=== PATIENT | male | born 1985 | race Caucasian/White ===

== ENCOUNTER 2024-10-13 18:32 | Inpatient (IN) | payer OTHER, SELFPAY ==
[2024-10-13 18:55] VITALS: BP 138/85; PULSE 88; TEMP 36.4; O2SAT 98
[2024-10-13 19:11] VITALS: BMI 30.9
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
--- NOTE | 2024-10-14 01:23 | PC.ADMIT ---
This policy writer assumed care of the patient at 1930 10/13/24. He was pacing the hallway, mumbling under his breath. He was very paranoid and avoided this policy writer when she approached him to do his admission. Patient said I'm okay, I'm Herberth Laboy (a character in a movie) . He was unable to sign any TANNER or any other legal paperwork. He spent the evening going in the patient kitchen and then in the hallway and in his room. He had no scheduled meds, but kept asking for Abilify 5 mg, that's legal .
--- NOTE | 2024-10-14 08:51 | HO.PM.IMCN ---
History of Present Illness Data of Consult Service Date: 10/14/24 Primary Care Provider: Unknown Physician HPI Reason for consult: Admission H&P Pt is a 38-year-old male with a PMH significant for?schizophrenia who is admitted to M5 psychiatry unit for paranoid/delusional behavior secondary to medication noncompliance. Pt was initially brought in on a section 12 to [facility] by police after being found acting erratically and a local jehovah's witness. When police confronted pt he eloped, running away and attempting to jump onto a moving computer rail train. In the hospital pt was floridly psychotic, speaking in word salad, acting erratically, and hypersexual, requiring chemical restraint. Workup in the ED concerning for inguinal intertrigo for which he was started on miconazole. Medical consult for admission H&P. ?Attempted to see pt on the unit, but he continues to be actively psychotic and refuses either interview or examination. Pt jumped up off bed when approached and walked out of the room, stating that he was done with all illegal evaluations, and something about an illegal allergy listed on his record. Pt appears internally pre-occupied, speaking loudly to himself, and walks quickly away if approached. Labs reviewed, significant for Review of Systems Review of Systems: Yes Unobtainable due to mental status [facility] Medical History (Updated 10/14/24 @ 13:16 by ABRAHAM Adams) Schizophrenia Social History Do you presently have visiting nurse or other home services: No Patient Tobacco Use Status: Refuse Tobacco use screen Currently Displaying Signs/Symptoms of Drug Intoxication Withdrawal: No Spiritual Healthcare Practices: unknown Worship Healthcare Practices: unknown Cultural Healthcare Practices: unknown Advance Directives: No Advance Directives Information Provided: Yes Do you have thoughts of harming others: None Do you have a plan to hurt others: No Plan Recently lost weight without trying: No Eating poorly because of decreased appetite: No Nutrition Risks: No Nutritional Risk Meds Allergies Allergy/AdvReac Type Severity Reaction Status Date / Time albuterol AdvReac vocal tic Verified 10/13/24 20:09 haloperidol (From Haldol) AdvReac Unknown Verified 10/13/24 20:05 methylphenidate AdvReac vocal tic Verified 10/13/24 20:09 wheat AdvReac mood Verified 10/13/24 20:11 changes Active Medications: Current Medications Acetaminophen (Acetaminophen 325 Mg Tablet) 650 mg PO Q6H PRN PRN Reason: Headache/Pain, Scale 1-10 Al Hydroxide/Mg Hydroxide (Magnesium Hydrox/Alum Hydrox 30 Ml Oral.Susp) 30 ml PO Q6H PRN PRN Reason: Heartburn/Nausea Magnesium Hydroxide (Milk Of Magnesia 30 Ml Oral.Susp) 30 ml PO DAILY PRN PRN Reason: Constipation Olanzapine (Olanzapine Odt 10 Mg Tab.Rapdis) 10 mg TRANSLINGU DAILY SAMPSON Trazodone HCl (Trazodone Hcl 50 Mg Tablet) 50 mg PO BEDTIME MRX1 PRN PRN Reason: Insomnia Home Medications ?Medication ?Instructions ?Recorded ?Confirmed ?Last Taken ?Type olanzapine 10 mg disintegrating 10 mg PO DAILY 10/13/24 10/13/24 Unknown History tablet Physical Exam Vital Signs and Narrative: Vital Signs: Last Vital Signs Temp 97.6 F 10/13/24 18:55 Pulse 88 10/13/24 18:55 BP 138/85 10/13/24 18:55 Pulse Ox 98 10/13/24 18:55 O2 Del Method Room Air 10/13/24 18:55 BMI result Body Mass Index 30.9 Pt actively psychotic, refuses formal exam Assessment and Plan (1) Medical clearance for psychiatric admission: Status: Acute Plan Pt is a 38-year-old male with a PMH significant for?schizophrenia who is admitted to M5 psychiatry unit for paranoid/delusional behavior secondary to medication noncompliance. Pt was initially brought in on a section 12 to [facility] by police after being found acting erratically and a local jehovah's witness. When police confronted pt he eloped, running away and attempting to jump onto a moving computer rail train. In the hospital pt was floridly psychotic, speaking in word salad, acting erratically, and hypersexual, requiring chemical restraint. Workup in the ED concerning for inguinal intertrigo for which he was started on miconazole. Medical consult for admission H&P. Mood disorder Plan as per psychiatry Inguinal intertrigo As reported on ED documentation Pt not amenable for examination at this time Continue miconazole Pt otherwise has no known acute medical complaints or chronic medical conditions. Will sign off for now. Please re-consult if any acute issue or need arises.
--- NOTE | 2024-10-14 17:28 | HO.PSYADMNOT ---
HPI Date of Service: 10/14/24 Chief Complaint: Schizophrenia Sources of Information: patient interviewed (Patient disorganized and wouldn't participate in the interview), chart reviewed and crisis/core team assessment reviewed HPI Narrative: 38 year old male with a history of schizophrenia. Information was obtained from [facility] documentation as patient was unable/unwilling to participate in meeting. Patient was transferred from [facility]. He was reportedly at a local confucianism and acting erratically. Police were called and patient tried to elope by running towards the train tracks and trying to get on a -?moving- train. Reported in the record is that the patient has a history of chronic schizophrenia and non-adherence to medications and has had similar presentations. He was most recently at [facility] 3 weeks ago or so. Patient was acting erratically in the ED reportedly making non-sensical and word salad statements, talking to his fist as if it were a microphone. He needed chemical restraint and reportedly ran naked in the ED. Reportedly his sister is trying to obtain guardianship. He was on Invega Sustenna in the past and when adherent he doesn't exhibit similar behaviors. On the unit, the patient is noted to be restless, pacing the unit, self dialoguing, stating he is Herberth Darnell (a movie character), saying randomly this is illegal . When this designer/writer attempted to meet with the patient he stood up, said I don't want to be subjected to an illegal evaluation and walked away. He would not engage with this designer/writer. Past Psychiatric History: Reported schizophrenia and previous psychiatric hospitalizations. Most recently [facility] in September 2024. Medical Evaluation Reviewed: Yes [facility] Medical History (Updated 10/14/24 @ 13:16 by ABRAHAM Adams) Schizophrenia Family History: unknown at this time Social History: Limited information at this time. Pending collateral information. Substance History: Reported MJ in the past. Trauma History: Unknown Diagnostics Vital Signs (24Hr): Vital Signs - 24 hr 10/13/24 18:55 Temperature 97.6 F Pulse Rate 88 Blood Pressure 138/85 Pulse Oximetry 98 Oxygen Delivery Method Room Air BMI result Body Mass Index 30.9 Meds/Allergies Meds Home Medications ?Medication ?Instructions ?Recorded ?Confirmed ?Type olanzapine 10 mg disintegrating 10 mg PO DAILY 10/13/24 10/13/24 History tablet Allergies Allergies Allergy/AdvReac Type Severity Reaction Status Date / Time albuterol AdvReac vocal tic Verified 10/13/24 20:09 haloperidol (From Haldol) AdvReac Unknown Verified 10/13/24 20:05 methylphenidate AdvReac vocal tic Verified 10/13/24 20:09 wheat AdvReac mood Verified 10/13/24 20:11 changes Mental Status Exam Mental Status Exam Narrative: General appearance: Disheveled. Poor hygiene.? Eye contact: Poor. Musculoskeletal: Psychomotor agitation, restless, pacing..??? Manner/behavior: Uncooperative Speech:? Self dialoguing ? Mood and affect: Anxious, paranoid, intense. Thought process/associations: Flight of ideas and loose associations. Word salad. Disorganized. Thought content: Paranoid, delusional. ? Hallucinations: AH based on self dialoguing and internal preoccupation Suicidality/self-destructive behavior: Can't assess Homicidally/violence: hypersexual per records. Reliability: poor.? ? Judgment: severely impaired.? ? Insight: severely impaired.? Cognition: Can't assess Attention, concentration and fund of knowledge Poor? Impulse control and emotional regulation: Poor Assessment & Plan Assessment & Plan (1) Medical clearance for psychiatric admission: Status: Acute Code(s): Z00.8 - Encounter for other general examination Plan Pt is a 38-year-old male with a PMH significant for?schizophrenia who is admitted to M5 psychiatry unit for paranoid/delusional behavior secondary to medication noncompliance. Pt was initially brought in on a section 12 to [facility] by police after being found acting erratically and a local confucianism. When police confronted pt he eloped, running away and attempting to jump onto a moving computer rail train. In the hospital pt was floridly psychotic, speaking in word salad, acting erratically, and hypersexual, requiring chemical restraint. Workup in the ED concerning for inguinal intertrigo for which he was started on miconazole. PLAN: - Admit to inpatient psychiatry - CV - Collateral information from family and providers. - Milieu treatment and group therapy. - Medications: Start Invega 6 mg daily. Zyprexa Zydis 10 mg BID PRN. - Social work evaluation. - Disposition planning. Inguinal intertrigo As reported on ED documentation Pt not amenable for examination at this time Continue miconazole Patient educated on: other (patient wouldn't engage due to mental state. ) Reason for continued inpatient stay Substantial Risk for: harm to self, inability to function and rapid decompensation Statement Statement: I have reviewed the history and physical and performed a pertinent examination on my patient. No changes have occurred unless specified. If the History and Physical was not performed prior to admission, the Hospitalist's service will be consulted for completing the admission physical. Time Spent With Patient Time: Total time managing care of this patient today ____ minutes.
[2024-10-14 19:48] LABS: Creatinine Clr Calc Pharmacy 142.0; Estimated Glomerular Filt Rate > 60
[2024-10-14 19:57] LABS: Alanine Aminotransferase 59 U/L (0-40); Albumin Level 4.6 g/dL (3.5-5.0); Alkaline Phosphatase 80 U/L (39-117); Anion Gap 14 (12-20); Aspartate Amino Transferase 33 U/L (5-37); Blood Urea Nitrogen 10 mg/dL (9-16); Calcium 9.6 mg/dL (8.4-10.2); Carbon Dioxide 29 mmol/L (22-29); Chloride 103 mmol/L (96-108); Cholesterol 118 mg/dL (<200); Creatinine Clr Calc Pharmacy 142.0; Estimated Glomerular Filt Rate > 60; HDL Cholesterol 37 mg/dL (>40); Potassium 3.7 mmol/L (3.3-5.1); Sodium 142 mmol/L (135-145); Total Protein 7.2 g/dL (6.5-8.0); Triglycerides 121 mg/dL (<150)
[2024-10-14 20:00] VITALS: BP 111/68; PULSE 89; RESP 16; TEMP 37.2; O2SAT 97
[2024-10-14 20:12] LABS: Thyroid Stimulating Hormone 2.45 uIU/mL (0.32-4.0)
[2024-10-14 20:18] LABS: Vitamin B12 365 pg/mL (200-900)
[2024-10-15 08:00] VITALS: BP 138/80; PULSE 104; TEMP 36.4; O2SAT 96
--- NOTE | 2024-10-15 09:46 | HO.PSYCHPN ---
Subjective Subjective Date of Service: 10/15/24 Reason For Visit: Schizophrenia Interim History: Patient seen briefly. When approached, patient said 5 mg of Abilify and I will be good. I am not going to do an illegal evaluation.. then walks away. He would not respond to further questions. He is described as disorganized. Pacing. He self dialogues. He keeps claiming he is Herberth Darnell from [facility]. He agreed to take Invega from today's nurse. Review of Systems Review of Systems Yes Unobtainable due to mental status Mental Status Exam Mental Status Exam Narrative: General appearance: Disheveled. Poor hygiene.? Eye contact: Poor. Musculoskeletal: Psychomotor agitation, restless, pacing..??? Manner/behavior: Uncooperative Speech:? Self dialoguing ? Mood and affect: Anxious, paranoid, intense. Thought process/associations: Flight of ideas and loose associations. Word salad. Disorganized. Thought content: Paranoid, delusional. ? Hallucinations: AH based on self dialoguing and internal preoccupation Suicidality/self-destructive behavior: Can't assess Homicidally/violence: hypersexual per records. Reliability: poor.? ? Judgment: severely impaired.? ? Insight: severely impaired.? Cognition: Can't assess Attention, concentration and fund of knowledge Poor? Impulse control and emotional regulation: Poor Diagnostics Vital Signs (24Hr): Vital Signs - 24 hr 10/14/24 20:00 Temperature 98.9 F Pulse Rate 89 Respiratory Rate 16 Blood Pressure 111/68 Pulse Oximetry 97 Oxygen Delivery Method Room Air BMI result Body Mass Index 30.9 Labs 10/14/24 19:29 Labs: Laboratory Results - last 48 hr 10/14/24 10/14/24 10/14/24 19:29 19:29 19:29 Sodium 142 Potassium 3.7 Chloride 103 Carbon Dioxide 29 Anion Gap 14 BUN 10 Creatinine 0.86 0.86 Estim Creat Clear Calc 142.0 142.0 Estimated GFR > 60 Random Glucose Calcium Total Bilirubin AST ALT Alkaline Phosphatase Total Protein Albumin Triglycerides Cholesterol LDL Cholesterol, Calc HDL Cholesterol Vitamin B12 TSH 10/14/24 19:29 Sodium Potassium Chloride Carbon Dioxide Anion Gap BUN Creatinine Estim Creat Clear Calc Estimated GFR > 60 Random Glucose 112 Calcium 9.6 Total Bilirubin 0.3 AST 33 ALT 59 H Alkaline Phosphatase 80 Total Protein 7.2 Albumin 4.6 Triglycerides 121 Cholesterol 118 LDL Cholesterol, Calc 57 HDL Cholesterol 37 L Vitamin B12 365 TSH 2.45 Medications Medications Current Medications Acetaminophen (Acetaminophen 325 Mg Tablet) 650 mg PO Q6H PRN PRN Reason: Headache/Pain, Scale 1-10 Al Hydroxide/Mg Hydroxide (Magnesium Hydrox/Alum Hydrox 30 Ml Oral.Susp) 30 ml PO Q6H PRN PRN Reason: Heartburn/Nausea Magnesium Hydroxide (Milk Of Magnesia 30 Ml Oral.Susp) 30 ml PO DAILY PRN PRN Reason: Constipation Olanzapine (Olanzapine Odt 10 Mg Tab.Rapdis) 10 mg TRANSLINGU BID PRN PRN Reason: Psychosis Paliperidone (Paliperidone Er 6 Mg Tab.Er.24) 6 mg PO DAILY SAMPSON Last Admin: 10/14/24 19:09 Dose: 6 mg Trazodone HCl (Trazodone Hcl 50 Mg Tablet) 50 mg PO BEDTIME MRX1 PRN PRN Reason: Insomnia Allergies Allergies Allergy/AdvReac Type Severity Reaction Status Date / Time albuterol AdvReac vocal tic Verified 10/13/24 20:09 haloperidol (From Haldol) AdvReac Unknown Verified 10/13/24 20:05 methylphenidate AdvReac vocal tic Verified 10/13/24 20:09 wheat AdvReac mood Verified 10/13/24 20:11 changes Assessment & Plan Assessment & Plan (1) Medical clearance for psychiatric admission: Status: Acute Code(s): Z00.8 - Encounter for other general examination Plan Pt is a 38-year-old male with a PMH significant for?schizophrenia who is admitted to M5 psychiatry unit for paranoid/delusional behavior secondary to medication noncompliance. Pt was initially brought in on a section 12 to [facility] by police after being found acting erratically and a local yazidism. When police confronted pt he eloped, running away and attempting to jump onto a moving commuter rail train. In the hospital pt was floridly psychotic, speaking in word salad, acting erratically, and hypersexual, requiring chemical restraint. Workup in the ED concerning for inguinal intertrigo for which he was started on miconazole. PLAN: - Admit to inpatient psychiatry - CV - Collateral information from family and providers. - Milieu treatment and group therapy. - Medications: Start Invega 6 mg daily. Zyprexa Zydis 10 mg BID PRN. - Social work evaluation. - Disposition planning. 10/15: Continue current management and treatment plan. Inguinal intertrigo As reported on ED documentation Pt not amenable for examination at this time Continue miconazole Reason for continued inpatient stay Substantial Risk for: inability to function and rapid decompensation Time Spent With Patient Time: Total time managing care of this patient today ____ minutes.
[2024-10-15 20:00] VITALS: BP 124/73; PULSE 97; TEMP 36.8; O2SAT 98
--- NOTE | 2024-10-15 22:01 | PC.NURSE ---
When this ad writer attempted evening assessment with this patient, he sat up in his bed quickly and stated I'm fine, I don't want no assessment, I took my meds this morning. He then laid back down in his bed, with his back to this ad writer.
[2024-10-16 08:00] VITALS: BP 110/58; PULSE 100; TEMP 36.6; O2SAT 100
--- NOTE | 2024-10-16 13:07 | HO.PSYCHPN ---
Subjective Subjective Date of Service: 10/16/24 Reason For Visit: Schizophrenia Interim History: Declined to meet with T/W. Pt stated, I don't want a legal evaluation. I already spoke to you today . Pt was informed he had not spoken with T/W today; however continued to walk away. Pt overheard stating his name is Jeremie. medication compliant. per nursing, slept 7 hours last night. Medication Compliance: Yes Side effects from medications: No Mental Status Exam Mental Status Exam Narrative: Unable to obtain full mental status d/t pt declined to meet with T/W. Patient Appearance: Appropriate Level of Consciousness: Awake Patient Behavior: Guarded and Uncooperative Mood Description: Labile Affect Description: Labile Speech Pattern: Clear Delusions: Paranoid Ideation Diagnostics Vital Signs (24Hr): Vital Signs - 24 hr 10/15/24 20:00 10/16/24 08:00 Temperature 98.3 F 97.8 F Pulse Rate 97 100 Blood Pressure 124/73 110/58 L Pulse Oximetry 98 100 Oxygen Delivery Method Room Air Room Air BMI result Body Mass Index 30.9 Labs 10/14/24 19:29 Labs: Laboratory Results - last 48 hr 10/14/24 10/14/24 10/14/24 19:29 19:29 19:29 Sodium 142 Potassium 3.7 Chloride 103 Carbon Dioxide 29 Anion Gap 14 BUN 10 Creatinine 0.86 0.86 Estim Creat Clear Calc 142.0 142.0 Estimated GFR > 60 Random Glucose Calcium Total Bilirubin AST ALT Alkaline Phosphatase Total Protein Albumin Triglycerides Cholesterol LDL Cholesterol, Calc HDL Cholesterol Vitamin B12 TSH 10/14/24 19:29 Sodium Potassium Chloride Carbon Dioxide Anion Gap BUN Creatinine Estim Creat Clear Calc Estimated GFR > 60 Random Glucose 112 Calcium 9.6 Total Bilirubin 0.3 AST 33 ALT 59 H Alkaline Phosphatase 80 Total Protein 7.2 Albumin 4.6 Triglycerides 121 Cholesterol 118 LDL Cholesterol, Calc 57 HDL Cholesterol 37 L Vitamin B12 365 TSH 2.45 Medications Medications Current Medications Acetaminophen (Acetaminophen 325 Mg Tablet) 650 mg PO Q6H PRN PRN Reason: Headache/Pain, Scale 1-10 Al Hydroxide/Mg Hydroxide (Magnesium Hydrox/Alum Hydrox 30 Ml Oral.Susp) 30 ml PO Q6H PRN PRN Reason: Heartburn/Nausea Magnesium Hydroxide (Milk Of Magnesia 30 Ml Oral.Susp) 30 ml PO DAILY PRN PRN Reason: Constipation Olanzapine (Olanzapine Odt 10 Mg Tab.Rapdis) 10 mg TRANSLINGU BID PRN PRN Reason: Psychosis Paliperidone (Paliperidone Er 6 Mg Tab.Er.24) 6 mg PO DAILY SAMPSON Last Admin: 10/16/24 08:34 Dose: 6 mg Trazodone HCl (Trazodone Hcl 50 Mg Tablet) 50 mg PO BEDTIME MRX1 PRN PRN Reason: Insomnia Allergies Allergies Allergy/AdvReac Type Severity Reaction Status Date / Time albuterol AdvReac vocal tic Verified 10/13/24 20:09 haloperidol (From Haldol) AdvReac Unknown Verified 10/13/24 20:05 methylphenidate AdvReac vocal tic Verified 10/13/24 20:09 wheat AdvReac mood Verified 10/13/24 20:11 changes Assessment & Plan Assessment & Plan (1) Schizophrenia: Status: Acute Code(s): F20.9 - Schizophrenia, unspecified Plan PLAN: - Admit to inpatient psychiatry - CV - Collateral information from family and providers. - Milieu treatment and group therapy. - Medications: Start Invega 6 mg daily. Zyprexa Zydis 10 mg BID PRN. - Social work evaluation. - Disposition planning. 10/15: Continue current management and treatment plan. 10/16: Declined to meet with T/W. Pt stated, I don't want a legal evaluation. I already spoke to you today . Pt was informed he had not spoken with T/W today; however continued to walk away. Pt overheard stating his name is Jeremie. medication compliant. per nursing, slept 7 hours last night. Patient educated on: other (declined to meet with T/W.) Reason for continued inpatient stay Substantial Risk for: med/psych decompensation Time Spent With Patient Time: Total time managing care of this patient today _10___ minutes.
[2024-10-16 19:53] VITALS: BP 130/77; PULSE 101; TEMP 36.4; O2SAT 98
--- NOTE | 2024-10-16 21:36 | PC.NURSE ---
At approximately 0, this blurb writer approached this patient and asked him how he was doing. He stated What do you mean? This blurb writer explained that check ins are done each shift to see how a patient is feeling. Patient stated No thank you, I'm all set. He then stated loudly That's illegal! That's an illegal assessment!
[2024-10-17 08:00] VITALS: BP 133/70; PULSE 90; RESP 18; TEMP 37; O2SAT 98
--- NOTE | 2024-10-17 14:23 | HO.PSYCHPN ---
Subjective Subjective Date of Service: 10/17/24 Reason For Visit: Schizophrenia Subjective Notes: Section 12B Interim History: Continues to decline to meet with T/W. guarded. irritable. Pt stated, I'm not talking to you. I won't have an evaluation. I'll stay here as long as I need to ; pt proceeded to walk away from T/W. medication compliant. per nursing, slept 8 hours last night. 12b up on 10/18/24. Medication Compliance: Yes Side effects from medications: No Mental Status Exam Mental Status Exam Narrative: Unable to obtain full mental status d/t pt declined to meet with T/W. Patient Appearance: Appropriate Level of Consciousness: Awake Patient Behavior: Guarded and Uncooperative Mood Description: Angry Affect Description: Constricted Speech Pattern: Clear Delusions: Paranoid Ideation Diagnostics Vital Signs (24Hr): Vital Signs - 24 hr 10/16/24 19:53 10/17/24 08:00 Temperature 97.6 F 98.6 F Pulse Rate 101 H 90 Respiratory Rate 18 Blood Pressure 130/77 133/70 Pulse Oximetry 98 98 Oxygen Delivery Method Room Air Room Air BMI result Body Mass Index 30.9 Labs 10/14/24 19:29 Medications Medications Current Medications Acetaminophen (Acetaminophen 325 Mg Tablet) 650 mg PO Q6H PRN PRN Reason: Headache/Pain, Scale 1-10 Al Hydroxide/Mg Hydroxide (Magnesium Hydrox/Alum Hydrox 30 Ml Oral.Susp) 30 ml PO Q6H PRN PRN Reason: Heartburn/Nausea Magnesium Hydroxide (Milk Of Magnesia 30 Ml Oral.Susp) 30 ml PO DAILY PRN PRN Reason: Constipation Olanzapine (Olanzapine Odt 10 Mg Tab.Rapdis) 10 mg TRANSLINGU BID PRN PRN Reason: Psychosis Paliperidone (Paliperidone Er 6 Mg Tab.Er.24) 6 mg PO DAILY SAMPSON Last Admin: 10/17/24 09:08 Dose: 6 mg Trazodone HCl (Trazodone Hcl 50 Mg Tablet) 50 mg PO BEDTIME MRX1 PRN PRN Reason: Insomnia Allergies Allergies Allergy/AdvReac Type Severity Reaction Status Date / Time albuterol AdvReac vocal tic Verified 10/13/24 20:09 haloperidol (From Haldol) AdvReac Unknown Verified 10/13/24 20:05 methylphenidate AdvReac vocal tic Verified 10/13/24 20:09 wheat AdvReac mood Verified 10/13/24 20:11 changes Assessment & Plan Assessment & Plan (1) Schizophrenia: Status: Acute Code(s): F20.9 - Schizophrenia, unspecified Plan PLAN: - Admit to inpatient psychiatry - CV - Collateral information from family and providers. - Milieu treatment and group therapy. - Medications: Start Invega 6 mg daily. Zyprexa Zydis 10 mg BID PRN. - Social work evaluation. - Disposition planning. 10/15: Continue current management and treatment plan. 10/16: Declined to meet with T/W. Pt stated, I don't want a legal evaluation. I already spoke to you today . Pt was informed he had not spoken with T/W today; however continued to walk away. Pt overheard stating his name is Jeremie. medication compliant. per nursing, slept 7 hours last night. 10/17: Continues to decline to meet with T/W. guarded. irritable. Pt stated, I'm not talking to you. I won't have an evaluation. I'll stay here as long as I need to ; pt proceeded to walk away from T/W. medication compliant. per nursing, slept 8 hours last night. 12b up on 10/18/24. Patient educated on: other (declined to meet with T/W.) Reason for continued inpatient stay Substantial Risk for: med/psych decompensation Time Spent With Patient Time: Total time managing care of this patient today _10___ minutes.
[2024-10-17 20:00] VITALS: BP 130/78; PULSE 92; TEMP 36.4; O2SAT 98
[2024-10-18 08:00] VITALS: BP 124/66; PULSE 75; TEMP 36.8; O2SAT 98
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
[2024-10-18 19:53] VITALS: BP 117/66; PULSE 84; RESP 18; TEMP 36.5; O2SAT 99
[2024-10-19 08:00] VITALS: BP 115/77; PULSE 82; TEMP 36.9; O2SAT 97
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
[2024-10-19 20:00] VITALS: BP 130/68; PULSE 82; TEMP 36.9; O2SAT 94
[2024-10-20 08:00] VITALS: BP 119/70; PULSE 79; RESP 20; TEMP 36.9; O2SAT 93
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
[2024-10-20] MEDS: Paliperidone ER 9 MG TAB.ER.24 PO (08:35)
--- NOTE | 2024-10-20 15:54 | MHC.CLN ---
CONSULT FOR CELIAC DIET RESTRICTIONS PER RN, ADMITTING PAPERWORK SHOWS PATIENT WITH CELIAC DISEASE. ALLERGY NOTED FOR WHEAT. ADDED ALLERGY FOR GLUTEN. DIET=REGULAR, GLUTEN FREE. KITCHEN AWARE OF DIET RESTRICTION.
[2024-10-20 20:00] VITALS: BP 124/73; PULSE 91; RESP 15; TEMP 36.9; O2SAT 98
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
[2024-10-21 08:13] VITALS: BP 121/70; PULSE 79; RESP 16; TEMP 36.9; O2SAT 97
[2024-10-21] MEDS: Paliperidone ER 9 MG TAB.ER.24 PO (08:42)
--- NOTE | 2024-10-21 17:34 | PC.NURSE ---
pt reports he is not allergic to gluten and hasn't been for many years .
[2024-10-21 19:53] VITALS: BP 115/69; PULSE 102; RESP 15; TEMP 36.4; O2SAT 99
[2024-10-22 07:50] VITALS: BP 121/74; PULSE 92; RESP 16; TEMP 36.5; O2SAT 96
[2024-10-22] MEDS: Paliperidone ER 9 MG TAB.ER.24 PO (08:52)
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
[2024-10-22 19:54] VITALS: BP 134/63; PULSE 104; RESP 15; TEMP 36.7; O2SAT 94
[2024-10-23 08:00] VITALS: BP 108/59; PULSE 68; RESP 16; TEMP 36.3; O2SAT 98
[2024-10-23] MEDS: Paliperidone ER 9 MG TAB.ER.24 PO (08:17)
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
[2024-10-23 19:46] VITALS: BP 129/73; PULSE 91; TEMP 36.6; O2SAT 98
[2024-10-24] MEDS: Paliperidone ER 9 MG TAB.ER.24 PO (08:05)
[2024-10-24 08:07] VITALS: BP 112/72; PULSE 75; TEMP 36.9; O2SAT 96
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
[2024-10-24 20:00] VITALS: BP 155/80; PULSE 63; TEMP 36.4; O2SAT 99
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
[2024-10-25 19:45] VITALS: BP 124/59; PULSE 90; TEMP 36.9; O2SAT 97
[2024-10-26 07:00] VITALS: BMI 33.5
[2024-10-26 09:08] VITALS: BP 139/83; PULSE 72; RESP 18; TEMP 36.7; O2SAT 96
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
[2024-10-26 20:00] VITALS: BP 132/78; PULSE 95; TEMP 36.8; O2SAT 97
[2024-10-27 08:00] VITALS: BP 141/82; PULSE 81; RESP 18; TEMP 36.6; O2SAT 98
[2024-10-27 19:52] VITALS: BP 123/68; PULSE 92; TEMP 36.9; O2SAT 96
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
[2024-10-28 08:15] VITALS: BP 114/65; PULSE 85; RESP 16; TEMP 36.9; O2SAT 95
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
[2024-10-28 10:59] LABS: Hemoglobin A1C 156.2645 umol/L; Total Hemoglobin (HGBA1C) 3683.9028 umol/L
[2024-10-28 19:39] VITALS: BP 116/68; PULSE 73; TEMP 36.9; O2SAT 97
[2024-10-29 08:00] VITALS: BP 124/71; PULSE 71; RESP 17; TEMP 36.6; O2SAT 97
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
[2024-10-29 19:53] VITALS: BP 127/73; PULSE 98; RESP 15; TEMP 36.4; O2SAT 98
[2024-10-30 08:00] VITALS: BP 128/77; PULSE 65; RESP 16; TEMP 36.9; O2SAT 93
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
== END 2024-10-30 10:54 | disposition home or self-care (01) | DRG 750 ==
PROVIDERS: Psychiatry & Neurology Psychiatry; Social Worker; Admitting Provider Psychiatry & Neurology Psychiatry; Visit Provider Psychiatry & Neurology Psychiatry
DX: F20.9 Schizophrenia, unspecified (principal); Z91.148 Patient's other noncompliance with medication regimen for other reason; L30.4 Erythema intertrigo; Z79.899 Other long term (current) drug therapy
CPT/HCPCS: 36415; 80053; 80061; 82565; 82607; 83036; 84443; J2426

== ENCOUNTER → 2024-10-13 18:32 | Outpatient (BNV) | payer OTHER, SELFPAY | PROVIDERS: Admitting Provider Psychiatry & Neurology Psychiatry; Visit Provider Student in an Organized Health Care Education/Training Program | DX: Z00.8 Encounter for other general examination (principal) | CPT/HCPCS: 99222 ==

== ENCOUNTER → 2024-10-13 18:32 | Outpatient (BNV) | payer OTHER, SELFPAY | PROVIDERS: Admitting Provider Psychiatry & Neurology Psychiatry; Visit Provider Psychiatry & Neurology Psychiatry | DX: F20.9 Schizophrenia, unspecified (principal) | CPT/HCPCS: 90792 ==